=== PATIENT | male | born 1950 | race Caucasian/White ===

== ENCOUNTER 2018-07-17 09:17 | Day surgery (SDC) | payer OTHER ==
--- NOTE | 2018-07-16 09:43 | HP ---
PREOPERATIVE HISTORY AND PHYSICAL: DATE OF ADMISSION/SURGERY: 07/17/18 DATE OF OFFICE VISIT/ENCOUNTER: 07/15/18 ATTENDING SURGEON: Piedad Steve MD * (DICTATED BY HUMERA MCFARLAND) PROCEDURE: Open reduction and internal fixation, right 5th metacarpal. CHIEF COMPLAINT: Right hand pain after injury. HISTORY OF PRESENT ILLNESS: This is a 68-year-old male, who sustained injury to his right hand on 07/10/18. 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 He was seen at the [facility]. He had an x-ray, which showed a displaced fracture of the 5th metacarpal, spiral midshaft. He was referred to Dr. Steve for further evaluation and treatment considerations. This is his dominant hand. He denies any associated numbness or tingling. After review of x-rays and evaluation by Dr. Steve, he has consented to proceed with surgical intervention at this time. PAST MEDICAL HISTORY: Lyme disease, diagnosed this past year. PAST SURGICAL HISTORY: None. CURRENT MEDICATIONS: None. ALLERGIES: No known drug allergies. FAMILY MEDICAL HISTORY: Brain cancer, diabetes, heart disease, hypertension, stroke, and rheumatoid arthritis. 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 He denies tobacco use and recreational drug use. He drinks alcohol on occasion. REVIEW OF SYSTEMS: Negative for general, cephalic, cardiovascular, respiratory , GI, , other musculoskeletal, integumentary, endocrine, neurologic, and hematologic symptoms. Infectious Disease: Negative for MRSA, hepatitis C, HIV. PHYSICAL EXAMINATION GENERAL: Well-developed, well-nourished 68-year-old male, in no acute distress. VITAL SIGNS: Height 6 feet tall, weight 150 pounds. Pulse rate 60, blood pressure 120/76. HEENT: Normocephalic, atraumatic. Pupils are equal, round, and reactive to light and accommodation. Extraocular movements are intact. Throat is clear. NECK: Supple. No palpable lymph nodes. PULMONARY: Lungs are clear to auscultation bilaterally. No wheezes, rales, or rhonchi. CARDIOVASCULAR: Regular rate and rhythm. S1, S2. No murmurs, rubs, or gallops. No edema. ABDOMEN: Positive bowel sounds. Soft, nontender. NEUROLOGICAL: Alert and oriented x3. Cranial nerves II through XII are intact. Sensation is intact to light touch. MUSCULOSKELETAL: On exam of his right hand, he has a moderate amount of ecchymosis and swelling of the hand. There is a slight rotational deformity when he flexes his pinky finger. He can extend the finger well. He has tenderness at the midshaft of the 5th metacarpal. Skin is intact. Neurovascular function is intact. IMAGING STUDIES: X-rays of the right hand show a displaced fracture, spiral midshaft of the 5th metacarpal. IMPRESSION: Right 5th metacarpal fracture. PLAN: The patient is scheduled to undergo an open reduction and internal fixation of the right 5th metacarpal with Dr. Steve on 07/17/18. He will return to the office 10 days postop for followup and suture removal. He plans on using over-the- counter medications for postoperative pain management. HUMERA MCFARLAND [id number]/[facility] #: [id number] RONDA
[~2018-07-17 09:17] MED LIST: Buffered Lidocaine 0.9% SYRIN* 5 ML/SYR SYRINGE INTRADERM ONE; Lidocaine 0.5%* 50 ML SDV ONE
[2018-07-17] MEDS ORDERED: Acetaminophen TAB* 325 MG PO ONE (09:19)
[2018-07-17] MEDS ORDERED: Naloxone* 0.4 MG/ML 1 ML VIAL IV PRN (09:20)
[2018-07-17] MEDS ORDERED: Ondansetron INJ* 2 MG/ML VIAL IV PRN (09:20)
[2018-07-17] MEDS ORDERED: Levalbuterol 0.63MG/3ML NEB* UNIT OF USE INH PRN (09:20)
[2018-07-17] MEDS ORDERED: Acetaminophen TAB* 325 MG ONE (10:57)
[2018-07-17] MEDS ORDERED: ceFAZolin 2 GM PREMIX in ORs 2 GM/50 ML BAG IVPB ONE (11:19)
[2018-07-17] MEDS ORDERED: Ketorolac INJ* 30 MG/ML 1 ML VIAL ONE (12:15)
[2018-07-17] MEDS ORDERED: ROPIVACAINE 5 MG/ML 30 ML BTL (0.5%) ONE (12:16)
[2018-07-17 13:09] VITALS: BP 118/82
--- NOTE | 2018-07-18 05:52 | OP ---
DATE OF OPERATION: 07/17/18 [facility] DATE OF : 46 SURGEON: Dr. Steve. SEM MANAGER: HUMERA Allen ANESTHESIA: IV regional. PRE-OP DIAGNOSIS: Right 5th metacarpal fracture, displaced. POST-OP DIAGNOSIS: Right 5th metacarpal fracture, displaced. OPERATIVE PROCEDURE: Open reduction internal fixation of right 5th metacarpal fracture. ESTIMATED BLOOD LOSS: Zero. TOURNIQUET TIME: About 30 minutes. INDICATIONS FOR PROCEDURE: Ashley is a 68-year-old man who injured his right hand and suffered a fracture of the 5th metacarpal, which is markedly displaced. He presents for ORIF. DESCRIPTION OF PROCEDURE: The patient was brought to the operating room and was given an IV regional anesthetic with a tourniquet around his right forearm. The skin of his right hand and forearm was prepped and draped in the usual sterile fashion. A longitudinal incision was made over the subcutaneous border of the 5th metacarpal and we dissected bluntly through the subcutaneous tissue down to periosteum. Periosteum was incised and then the fracture fragments were exposed. They were reduced with a clamp and then secured with an 8-hole plate and seven screws, one which crossed the fracture. The position of the hardware and fracture fragments was checked on the C-arm in the AP and lateral views and found to be satisfactory. The periosteum was repaired over the plate with 4-0 Vicryl suture. The skin edges were reapproximated with 4-0 nylon suture and the wound was dressed with Xeroform, 4x4, Webril, and an Mathew wrap. The patient tolerated the procedure well and was brought to the recovery room in good condition. [id number]/[facility] #: [id number] [facility]
--- NOTE | 2018-07-21 09:10 | RAD ---
CPT II Codes: G9500 INDICATION: Right small finger fracture TECHNIQUE: Intraoperative fluoroscopy was provided during right small finger ORIF. FINDINGS: 2 spot films depict plate and screw fixation of the fracture right fifth metacarpal. Fluoroscopy time: 12 seconds IMPRESSION: As above.
== END 2018-07-17 13:18 | disposition home or self-care (01) ==
LOC: OREAST 09:17
PROVIDERS: ATTEND Orthopaedic Surgery
DX: S62.326A Displaced fracture of shaft of fifth metacarpal bone, right hand, initial encounter for closed fracture (principal); X50.0XXA Overexertion from strenuous movement or load, initial encounter; Y93.89 Activity, other specified; Y92.79 Other farm location as the place of occurrence of the external cause; Y99.0 Civilian activity done for income or pay; A69.20 Lyme disease, unspecified
CPT/HCPCS: 76000; A9270-GY; C1713; C1776; J0690; J1885; J2795